=== PATIENT | female | born 1945 | race Caucasian/White ===

== ENCOUNTER → 2018-05-29 18:23 | Outpatient (REF) | payer MEDICARE, OTHER, SELFPAY | LOC: LBN 18:23 | PROVIDERS: PCP Family Medicine; Visit Provider Family Medicine | DX: N39.0 Urinary tract infection, site not specified (principal); R31.9 Hematuria, unspecified | CPT/HCPCS: 87077; 87086; 87186 ==

== ENCOUNTER 2019-03-01 19:27 | Outpatient (REF) | payer MEDICARE, OTHER, SELFPAY ==
[2019-03-01 19:57] LABS: Bilirubin Negative (Negative); Blood Small (Negative); Clarity Sl Cloudy; Glucose Negative (Negative); Ketones Negative (Negative); Leukocyte Esterase Moderate (Negative); Nitrite Negative (Negative); Urobilinogen 0.2 EU/dL (Up TO 0.2)
[2019-03-01 20:19] LABS: Bacteria Moderate HPF (Negative); C & S Indicated? C&S Done As Ordered; Casts Negative LPF (Negative); Crystals Negative HPF (Negative); Epithelial Cells Negative HPF (Negative); Mucus Negative (Negative); RBC Negative (0-2); WBC >50 HPF (0-5)
== END 2019-03-01 19:47 ==
LOC: LBN 19:27
PROVIDERS: PCP Family Medicine; Visit Provider Family Medicine
DX: R30.0 Dysuria (principal)
CPT/HCPCS: 87077; 81003; 81015; 87086; 87186

== ENCOUNTER 2020-09-07 21:15 | Outpatient (REF) | payer MEDICARE, OTHER, SELFPAY | END 2020-09-07 21:35 | LOC: NCHCN 21:15 | PROVIDERS: PCP Family Medicine; Visit Provider Family Medicine | DX: N39.0 Urinary tract infection, site not specified (principal) | CPT/HCPCS: 87086 ==

== ENCOUNTER 2020-10-13 02:08 | Outpatient (CLI) | payer MEDICARE, OTHER, SELFPAY ==
[2020-10-13 12:41] LABS: HGB 13.4 g/dL (11.2-15.7); MCH 28.7 pg (27.0-33.0); MCHC 32.7 % (32.0-36.0); MCV 87.8 fL (80-95); MPV 10.3 fL (8.0-11.0); Platelet Count 260 10^3/uL (130-400); RBC 4.67 10^6/uL (3.93-5.22); RDW 12.8 % (11.7-14.6); RDW-SD 41.4 fL; WBC 4.86 10^3/uL (4.4-10.8)
[2020-10-13 12:53] LABS: ALT 26 U/L (14-59); AST 14 U/L (15-37); Alkaline Phosphatase 58 U/L (46-116); Anion Gap 9.3 mmol/L (3-11); BUN 18 mg/dL (7-18); Bilirubin, Total 0.4 mg/dL (0.2-1.0); CO2 28.7 mmol/L (21.0-32.0); CREATININE 0.92 mg/dL (0.55-1.02); Calcium 9.1 mg/dL (8.5-10.1); Calculated LDL 197 mg/dL (<100); Chloride 104 mmol/L (98-107); Cholesterol 293 mg/dL (<200); Estimated GFR 59.35 (mL/min/1.73m2); Glucose 79 mg/dL (74-106); HDL Cholesterol 77 mg/dL (40-60); Potassium 4.8 mmol/L (3.5-5.1); Sodium 142 mmol/L (136-145); Total Protein 6.9 g/dL (6.4-8.2); Triglyceride 99 mg/dL (<150)
== END 2020-10-13 02:28 ==
PROVIDERS: PCP Family Medicine; Visit Provider Family Medicine
DX: E78.5 Hyperlipidemia, unspecified (principal)
CPT/HCPCS: 36415; 80053; 80061; 85027

== ENCOUNTER 2021-11-05 01:16 | Outpatient (CLI) | payer MEDICARE, OTHER, SELFPAY ==
[2021-11-05 11:41] LABS: Source Nasal/Nares
[2021-11-05 14:08] LABS: COVID-19 PCR Negative (Negative)
== END 2021-11-05 01:17 | disposition home or self-care (01) ==
LOC: LBO 01:17
PROVIDERS: PCP Family Medicine; Visit Provider Ophthalmology
DX: Z20.822 Contact with and (suspected) exposure to COVID-19 (principal); Z01.818 Encounter for other preprocedural examination
CPT/HCPCS: 87635

== ENCOUNTER 2021-11-08 08:04 | Day surgery (SDC) | payer MEDICARE, OTHER, SELFPAY ==
[2021-11-08 08:31] VITALS: BP 125/64; PULSE 84; RESP 16; TEMP 36.3; O2SAT 100
[2021-11-08] MEDS: Tropicam./Phenyleph. (1/2.5%) 5 ML BTL OD ×3 (08:39→08:49)
--- NOTE | 2021-11-08 09:35 | W.ANESPRE ---
General Info Date of Service Date Performed: 11/08/21 Height: 5 ft 2 in Weight: 53.3 kg Body Mass Index (BMI): 21.4 Surgical Procedure: Operation Date: 11/08/21 09:55 Proposed Procedures Side Surgeon p Cataract Extraction with IOL Implant Right Ozzie Freedman MD Meds Allergies and Home Medications Allergies Allergy/AdvReac Type Severity Reaction Status Date / Time chocolate with almonds AdvReac Unknown Other (See Uncoded 11/08/21 08:29 Comment) Home Medication Medication Instructions Recorded glucosamine mena 2KCl-chondroit 2 tab PO DAILY 01/08/13 multivitamin [One Daily] 2 ea PO DAILY 08/02/16 magnesium amino acid chelate 50 mg PO DAILY 08/16/17 Current Visit Medications: Current Medications Generic Name Dose Route Start Last Admin Trade Name Freq PRN Reason Stop Dose Admin Acetaminophen 1,000 mg 11/08/21 06:00 Acetaminophen 500 Mg Tab PO Q4H PRN PRN Miscellaneous Medication 0 ml 11/08/21 06:00 Prednisolone 1%, Moxifloxacin 0.5%, Nepafenac 0.1% 5ml Btl OD DIRECTED [facility] Miscellaneous Medication 0 ml 11/08/21 06:00 11/08/21 08:49 Tropicam./Phenyleph. 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 Surgical History Surgical History Appendectomy (~2010) Cholecystectomy (~2010) Colonoscopy - IV Sedation (10/24/16) Tobacco Smoking/Tobacco Use Status: Never Passive smoking exposure: Yes Second hand exposure: Yes Alcohol Alcohol Intake: current Alcohol intake frequency: 0-2 drinks per day Alcohol type: wine Substance Use Substance use: Never Substance use type: does not use Vital Signs and Lab Results Vital Signs Most Recent Vital Signs in EMR: Most Recent Vital Signs Temp Pulse Resp BP Pulse Ox 36.3 C L 84 16 125/64 100 11/08/21 08:31 11/08/21 08:31 11/08/21 08:31 11/08/21 08:31 11/08/21 08:31 Lab Results Blood Type / Crossmatch: No Data to Display Complete Blood Count: No Data to Display Complete Metabolic Panel: No Data to Display Liver Function Panel: No Data to Display Coagulation Panel: No Data to Display Cardiac Panel: No Data to Display Arterial Blood Gas: No Data to Display Venous Blood Gas: No Data to Display Pancreas Panel: No Data to Display Thyroid Panel: No Data to Display Infectious Disease: Coronavirus (COVID-19)(PCR) Negative (Negative) 11/05/21 08:38 11/05/21 Coronavirus 2019 Source Nasal/Nares 11/05/21 08:38 11/05/21 Blood Cultures: No Data to Display Toxicology Panel: No Data to Display Anesthesia Assessment and Plan Anesthesia History Personal History: No History of Anesthesia Complications Family History: No Family History of Anesthesia Complications Exercise Tolerance Exercise Tolerance: Metabolic Equivalents>4 Pertinent Negatives Pertinent Negatives: No Symptoms of GERD, No Major Cardiovascular Symptoms or Complaints, No Major Pulmonary Symptoms or Complaints and No History of CVA/TIA Cardiac & Pulmonary Exam Cardiac Exam: Normal S1/S2 Heart Sounds Pulmonary Exam: Clear Bilateral Breath Sounds Implantable Cardiac Device Does patient have a Pacemaker or an ICD?: No Airway Exam Known Difficult Airway: No Mallampati Class: 1 Mouth Opening: Normal (> 3cm) Thyromental Distance: Greater than 3 cm Neck Range of Motion: Full ROM Neck Circumference: Normal Teeth Condition: Normal Dentition ASA Classification ASA Score: ASA 2 Emergency Case?: No NPO Status NPO Status: NPO Clears >2 hours, Solids >8 hours Anesthesia Plan Resuscitation Status: Full Code Anesthesia Technique: MAC Anesthesia Airway Planned: Natural Airway Monitors Used: Standard Monitors
[2021-11-08 09:36] VITALS: BMI 21.4
[2021-11-08] MEDS: Lidocaine 2% Jelly 6 ML SYR (09:46)
[2021-11-08] MEDS: Tetracaine 0.5% 4 ML BTL OD (09:46)
[2021-11-08] MEDS: Balanced Salt Soln.-PLUS 500 ML BAG (09:54)
[2021-11-08] MEDS: Duovisc Viscoelastic System EACH 1 EACH (09:55)
[2021-11-08] MEDS: Povidone-Iodine Ophth 30 ML BTL (09:57)
--- NOTE | 2021-11-08 10:11 | W.ANESPOSTOP ---
Postoperative Evaluation Date, Time and Location Date Performed: 11/08/21 Time Performed: 10:11 Patient Location: Day Surgery Unit Vital Signs Most Recent Imported Vital Signs: Most Recent Vital Signs Temp Pulse Resp BP Pulse Ox 36.3 C L 84 16 125/64 100 11/08/21 08:31 11/08/21 08:31 11/08/21 08:31 11/08/21 08:31 11/08/21 08:31 Most Recent Manually Entered Vital Signs: Adult Blood Pressure: 122/61 Heart Rate: 73 Respirations: 12 Oxygen Saturation (%): 99 Temperature (C): 36.3 C Pain Score (0-10 Scale): 0 Pain Score Most Recent Pain Score: Most Recent Pain Score Pain Level 0 11/08/21 08:31 Assessment Mental Status: Awake (Alert & Oriented to Patient Baseline) Airway and Respiratory Function: Patent airway with normal (patient baseline) respiratory exam Cardiovascular Function: Hemodynamically Stable Hydration Status: Adequately Hydrated Nausea & Vomiting: No Nausea or Vomiting Pain: Pt. Denies Any Pain Peripheral Nerve Block: Patient did not receive a nerve block
[2021-11-08 10:12] VITALS: BP 122/61; PULSE 73; RESP 12; TEMPC 36.3; O2SAT 99
--- NOTE | 2021-11-08 10:12 | W.PM.DSUDISC ---
Discharge Plan Disposition Patient Disposition: HOME Condition: Good Discharge Details Attending Provider: Ozzie Freedman Primary Care Provider: Christina Pettit Home Meds and New Rx's Prescriptions: No Action glucosamine mena 2KCl-chondroit 1 EACH tablet 2 tab PO DAILY RF: 0 multivitamin [One Daily] 1 EACH tablet 2 ea PO DAILY RF: 0 magnesium amino acid chelate 100 MG tablet 50 mg PO DAILY RF: 0 Discharge Instructions Stand Alone Forms: Post-op Topical Cataract, Brad Hassan ([facility]) Discharge Orders Discharge Orders: Discharge Order (Routine); Ordered 11/08/21 Ordered By: Ozzie Freedman DS: Diagnosis Discharge Diagnosis (1) Cortical cataract of right eye: Status: Resolved (2) Nuclear sclerotic cataract of right eye: Status: Resolved
--- NOTE | 2021-11-08 10:13 | W.PM.OP ---
Date of service: 11/08/21 Time of Service: 10:13 Operative Note Operative Note DATE OF PROCEDURE: 11/08/21 PRE-OP DIAGNOSIS: Nuclear/cortical cataract, right eye POST-OP DIAGNOSIS: same PROCEDURE: Cataract extraction using phacoemulsification with intraocular lens implant, right eye SURGEON: Ozzie Freedman ANESTHESIA TYPE: Local By Surgeon and MAC Refer to Anesthesia Record ESTIMATED BLOOD LOSS: 0 PATHOLOGY: none sent COMPLICATIONS: None Patient was transported to: same day Patient's condition: stable Implants: José Clareon [id number] Indications: Progressive decreased vision due to cataract, right eye Procedure Description: CATARACT SURGERY OPERATIVE REPORT PREOPERATIVE DIAGNOSIS: Nuclear/cortical cataract, right eye POSTOPERATIVE DIAGNOSIS: Same OPERATION: Cataract extraction using phacoemulsification with posterior chamber intraocular lens implant, right eye. IOL: IOL Automobile Mechanic Assistant/Model: José Clareon [id number] IOL Power: + 22.0 diopters IOL Serial Number: [id number] Optic Diameter: 6.0mm Haptic/Overall Diameter: 13.0mm PHACO INFO: José Santeen Productsurion Vision System with OZil and Active Fluidics Cumulative Dispersed Energy (CDE): 10.71 seconds SURGEON: Ozzie Freedman MD, ADOLPH ANESTHESIA: Monitored Anesthesia Care (MAC), with local sub-tenon's anesthetic infiltration COMPLICATIONS: None SPECIMENS: None INDICATIONS FOR PROCEDURE: The patient is a 76-year-old lady with history of diminished visual acuity in her right eye secondary to the development of nuclear and cortical cataract. The option of cataract surgery was offered to the patient and she felt she was symptomatic enough that she wished to proceed. PROCEDURE: The correct surgical eye was identified and marked as the right eye and the pupil was dilated in the preoperative area using mydriatics and cycloplegics. The dilated pupil size was 6.0 mm. She elected to proceed without oral sedation. The patient was brought to the operating room where cardiopulmonary monitoring was instituted and surgical time-out was performed, confirming the correct operative eye and IOL power. Topical anesthesia was administered and ophthalmic povidone-iodine 5% was instilled into the conjunctival fornices. Lidocaine gel was applied to the cornea and the esteban-ocular area was prepped with Betadine 10% solution and draped in the usual sterile fashion for intraocular surgery, including an aperture drape. A Tegaderm transparent film dressing was cut in half and used to cover the lashes and lid margins. Care was taken to sequester the lashes and lid margins under the Tegaderm dressing. A lid speculum was placed between the lids of the operative eye and the Viola-Gerry operating microscope was maneuvered into position. Macho scissors were then used to make a conjunctival buttonhole approximately 6mm posterior to the limbus in the inferonasal quadrant. Blunt dissection was carried out to expose bare sclera, and a blunt-tipped sub-tenon?s anesthesia cannula was introduced and passed posteriorly along the globe where non-preserved plain lidocaine was injected into posterior sub-Tenon?s space. A sideport knife was used to make a paracentesis port inferiortemporally. Intraocular phenylephrine/lidocaine was injected into the anterior chamber. The anterior chamber was then filled with viscoelastic. A 2.4mm keratome knife was used to create a half-thickness groove at the limbus and then to construct a three-plane near-clear corneal tunnel extending 2.0mm into clear cornea in the superiortemporal position. . A flap was raised on the anterior capsule and capsulorhexis forceps were used to complete a continuous curvilinear capsulorhexis of 5.0 mm. Balanced salt solution was then used to perform cortical cleaving hydrodissection and nuclear hydrodelineation until the lens could be freely rotated within the capsular bag. The lens nucleus was then disassembled and removed within the capsular bag and iris plane using phacoemulsification. Residual cortical material was removed using the I/A handpiece. The posterior capsule was carefully polished to remove as much residual lens epithelial cells as safely possible. The capsular bag was then inflated and the anterior chamber deepened with viscoelastic. The lens implant described above was inserted into the capsular bag using the José Autonome Injector. A Kuglen hook was used to dial the IOL into position. Residual viscoelastic was then removed first from posterior to the IOL, then from the anterior chamber using the I/A handpiece. The lens implant was noted to center nicely within the capsular bag. The incisions were stromally hydrated, and the anterior chamber was reformed using BSS. Then 0.5cc of moxifloxacin 1.0mg/ml were injected into the capsular bag and anterior chamber. The incisions were checked with a Weck spear and found to be secure. Several drops of ophthalmic povidone-iodine 5% were then applied to the eye followed by two drops of Imprimis combination prednisolone/moxifloxacin/nepafenac solution. The drapes were removed and a clear plastic protective eye shield was placed over the eye. The patient was then returned to Same Day Surgery in stable condition.
[2021-11-08 10:16] VITALS: BP 122/61; PULSE 73; RESP 16; TEMP 36.1; O2SAT 99
== END 2021-11-08 10:33 | disposition home or self-care (01) ==
PROVIDERS: PCP Family Medicine; Visit Provider Ophthalmology
PROC: (CPT 66984; principal; 2021-11-08 09:45)
DX: H25.11 Age-related nuclear cataract, right eye (principal)
CPT/HCPCS: 66984; V2632

== ENCOUNTER 2021-11-19 01:03 | Outpatient (CLI) | payer MEDICARE, OTHER, SELFPAY ==
[2021-11-19 15:55] LABS: Source Nasal/Nares
[2021-11-19 21:03] LABS: COVID-19 PCR Negative (Negative)
== END 2021-11-19 01:04 | disposition home or self-care (01) ==
LOC: LBO 01:03
PROVIDERS: PCP Family Medicine; Visit Provider Ophthalmology
DX: Z20.822 Contact with and (suspected) exposure to COVID-19 (principal)
CPT/HCPCS: 87635; U0003; U0005

== ENCOUNTER 2021-11-22 08:55 | Day surgery (SDC) | payer MEDICARE, OTHER, SELFPAY ==
[2021-11-22] MEDS: Tropicam./Phenyleph. (1/2.5%) 5 ML BTL OS ×3 (09:23→09:35)
[2021-11-22 09:25] VITALS: BP 116/61; PULSE 76; RESP 16; TEMP 36.1; O2SAT 100
--- NOTE | 2021-11-22 09:57 | W.ANESPRE ---
General Info Date of Service Date Performed: 11/22/21 Height: 5 ft 2 in Weight: 50.6 kg Body Mass Index (BMI): 20.4 Surgical Procedure: Operation Date: 11/22/21 11:40 Proposed Procedure Side Surgeon p Cataract Extraction with IOL Implant Left Ozzie Freedman MD Meds Allergies and Home Medications Allergies Allergy/AdvReac Type Severity Reaction Status Date / Time chocolate with almonds AdvReac Unknown Other (See Uncoded 11/22/21 09:20 Comment) Home Medication Medication Instructions Recorded glucosamine sulf dipotassium Cl 2 tab PO DAILY 01/08/13 500 mg-chondroitin sulf 400 mg tablet multivitamin (One Daily) 2 ea PO DAILY 08/02/16 magnesium amino acid chelate 100 50 mg PO DAILY 08/16/17 mg tablet Current Visit Medications: Current Medications Generic Name Dose Route Start Last Admin Trade Name Freq PRN Reason Stop Dose Admin Acetaminophen 1,000 mg 11/22/21 06:00 Acetaminophen 500 Mg Tab PO Q4H PRN PRN Miscellaneous Medication 0 ml 11/22/21 06:00 Prednisolone 1%, Moxifloxacin 0.5%, Nepafenac 0.1% 5ml Btl OS DIRECTED DORINA Miscellaneous Medication 0 ml 11/22/21 06:00 11/22/21 09:35 Tropicam./Phenyleph. (1/2.5%) 5 Ml Btl OS 1 drp DIRECTED DORINA Administration Tetracaine HCl 0 ml 11/22/21 06:00 Tetracaine 0.5% 4 Ml Btl OS DIRECTED DORINA PFSH Active Problems Active Problems: Problem Status Onset Code Hyperlipidemia E78.5 Hearing impairment H91.90 Nuclear sclerotic cataract of right eye H25.11 Medical History Medical History Colon polyp Diverticulosis large intestine w/o perforation or abscess w/bleeding Uterine prolapse tried a pessary, caused UTI's, stopped using. Surgical History Surgical History (Updated 11/22/21 @ 09:20 by Justine Vargas) Appendectomy (~2010) Cholecystectomy (~2010) Colonoscopy - IV Sedation (10/24/16) Cortical cataract of right eye Hx of cataract surgery Tobacco Smoking/Tobacco Use Status: Never Passive smoking exposure: Yes Second hand exposure: Yes Alcohol Alcohol Intake: current Alcohol intake frequency: 0-2 drinks per day Alcohol type: wine Substance Use Substance use: Never Substance use type: does not use Vital Signs and Lab Results Vital Signs Most Recent Vital Signs in EMR: Most Recent Vital Signs Temp Pulse Resp BP Pulse Ox 36.1 C L 76 16 116/61 100 11/22/21 09:25 11/22/21 09:25 11/22/21 09:25 11/22/21 09:25 11/22/21 09:25 Lab Results Blood Type / Crossmatch: No Data to Display Complete Blood Count: No Data to Display Complete Metabolic Panel: No Data to Display Liver Function Panel: No Data to Display Coagulation Panel: No Data to Display Cardiac Panel: No Data to Display Arterial Blood Gas: No Data to Display Venous Blood Gas: No Data to Display Pancreas Panel: No Data to Display Thyroid Panel: No Data to Display Infectious Disease: Coronavirus (COVID-19)(PCR) Negative (Negative) 11/19/21 08:30 11/19/21 Coronavirus 2019 Source Nasal/Nares 11/19/21 08:30 11/19/21 Blood Cultures: No Data to Display Toxicology Panel: No Data to Display Anesthesia Assessment and Plan Anesthesia History Personal History: No History of Anesthesia Complications Family History: No Family History of Anesthesia Complications Exercise Tolerance Exercise Tolerance: Metabolic Equivalents>4 Pertinent Negatives Pertinent Negatives: No Symptoms of GERD Cardiac & Pulmonary Exam Cardiac Exam: Normal S1/S2 Heart Sounds Pulmonary Exam: Clear Bilateral Breath Sounds Implantable Cardiac Device Does patient have a Pacemaker or an ICD?: No Airway Exam Known Difficult Airway: No Mallampati Class: 1 Mouth Opening: Normal (> 3cm) Thyromental Distance: Greater than 3 cm Neck Range of Motion: Full ROM Neck Circumference: Normal Teeth Condition: Normal Dentition ASA Classification ASA Score: ASA 2 Emergency Case?: No NPO Status NPO Status: NPO Clears >2 hours, Solids >8 hours Anesthesia Plan Resuscitation Status: Full Code Anesthesia Technique: MAC Anesthesia Airway Planned: Natural Airway Monitors Used: Standard Monitors
[2021-11-22 10:20] VITALS: BMI 20.4
[2021-11-22] MEDS: Tetracaine 0.5% 4 ML BTL OS (10:32)
[2021-11-22] MEDS: Lidocaine 2% Jelly 6 ML SYR (10:35)
[2021-11-22] MEDS: Balanced Salt Soln.-PLUS 500 ML BAG (10:40)
[2021-11-22] MEDS: Duovisc Viscoelastic System EACH 1 EACH (10:43)
[2021-11-22] MEDS: Povidone-Iodine Ophth 30 ML BTL (10:44)
--- NOTE | 2021-11-22 10:59 | W.PM.DSUDISC ---
Discharge Plan Disposition Patient Disposition: HOME Condition: Good Discharge Details Attending Provider: Ozzie Freedman Primary Care Provider: Christina Pettit Home Meds and New Rx's Prescriptions: No Action glucosamine mena 2KCl-chondroit 1 EACH tablet 2 tab PO DAILY 0RF multivitamin [One Daily] 1 EACH tablet 2 ea PO DAILY 0RF Label Comments: 08/02/16: Vitality MVI and Mineral, 2 tabs PO daily. -BR magnesium amino acid chelate 100 MG tablet 50 mg PO DAILY 0RF Discharge Instructions Stand Alone Forms: Post-op Topical Cataract, Brad Hassan ([facility]) Discharge Orders Discharge Orders: Discharge Order (Routine); Ordered 11/22/21 Ordered By: Ozzie Freedman DS: Diagnosis Discharge Diagnosis (1) Nuclear sclerotic cataract of left eye: Status: Resolved
[2021-11-22 11:00] VITALS: BP 146/92; PULSE 71; RESP 16; TEMP 36.6; O2SAT 99
--- NOTE | 2021-11-22 11:01 | W.PM.OP ---
Date of service: 11/22/21 Time of Service: 11:01 Operative Note Operative Note DATE OF PROCEDURE: 11/22/21 PRE-OP DIAGNOSIS: Nuclear cataract, left eye POST-OP DIAGNOSIS: same PROCEDURE: Cataract extraction using phacoemulsification with intraocular lens implant, left eye SURGEON: Ozzie Freedman ANESTHESIA TYPE: Local By Surgeon and MAC Refer to Anesthesia Record PATHOLOGY: none sent COMPLICATIONS: None Patient was transported to: same day Patient's condition: stable Implants: José Clareon [id number] Indications: Progressive decreased vision due to cataract, left eye Procedure Description: CATARACT SURGERY OPERATIVE REPORT PREOPERATIVE DIAGNOSIS: Nuclear cataract, left eye POSTOPERATIVE DIAGNOSIS: Same OPERATION: Cataract extraction using phacoemulsification with posterior chamber intraocular lens implant, left eye. IOL: IOL Electrical Contacts Adjuster/Model: José Clareon [id number] IOL Power: + 21.5 diopters IOL Serial Number: [id number] Optic Diameter: 6.0mm Haptic/Overall Diameter: 13.0mm PHACO INFO: José LetMeHearYaurion Vision System with OZil and Active Fluidics Cumulative Dispersed Energy (CDE): 5.16 seconds SURGEON: Ozzie Freedman MD, ADOLPH ANESTHESIA: Monitored Anesthesia Care (MAC), with local sub-tenon's anesthetic infiltration COMPLICATIONS: None SPECIMENS: None INDICATIONS FOR PROCEDURE: The patient is a 76-year-old lady with history of diminished visual acuity in both eyes secondary to the development of bilateral nuclear cataract. The option of cataract surgery was offered to the patient and she wished to proceed. She has already undergone cataract surgery in the right eye and is doing well postoperatively. She now presents for cataract surgery in the left eye. PROCEDURE: The correct surgical eye was identified and marked as the left eye and the pupil was dilated in the preoperative area using mydriatics and cycloplegics. The dilated pupil size was 7.0 mm. She elected to proceed without oral sedation. The patient was brought to the operating room where cardiopulmonary monitoring was instituted and surgical time-out was performed, confirming the correct operative eye and IOL power. Topical anesthesia was administered and ophthalmic povidone-iodine 5% was instilled into the conjunctival fornices. Lidocaine gel was applied to the cornea and the esteban-ocular area was prepped with Betadine 10% solution and draped in the usual sterile fashion for intraocular surgery, including an aperture drape. A Tegaderm transparent film dressing was cut in half and used to cover the lashes and lid margins. Care was taken to sequester the lashes and lid margins under the Tegaderm dressing. A lid speculum was placed between the lids of the operative eye and thet operating microscope was maneuvered into position. Macho scissors were then used to make a conjunctival buttonhole approximately 6mm posterior to the limbus in the inferonasal quadrant. Blunt dissection was carried out to expose bare sclera, and a blunt-tipped sub-tenon?s anesthesia cannula was introduced and passed posteriorly along the globe where non-preserved plain lidocaine was injected into posterior sub-Tenon?s space. A sideport knife was used to make a paracentesis port superior/superiortemporally. Intraocular phenylephrine/lidocaine was injected into the anterior chamber. The anterior chamber was then filled with viscoelastic. A 2.4mm keratome knife was used to create a half-thickness groove at the limbus and then to construct a three-plane near-clear corneal tunnel extending 2.0mm into clear cornea in the temporal position. . A flap was raised on the anterior capsule and capsulorhexis forceps were used to complete a continuous curvilinear capsulorhexis of 5.0 mm. Balanced salt solution was then used to perform cortical cleaving hydrodissection and nuclear hydrodelineation until the lens could be freely rotated within the capsular bag. The lens nucleus was then disassembled and removed within the capsular bag and iris plane using phacoemulsification. Residual cortical material was removed using the 45-degree angled silicone I/A tip with 0.3mm port. The posterior capsule was carefully polished to remove as much residual lens epithelial cells as safely possible. The capsular bag was then inflated and the anterior chamber deepened with viscoelastic. The lens implant described above was inserted into the capsular bag using the José Autonome Injector. A Kuglen hook was used to dial the IOL into position. Residual viscoelastic was then removed first from posterior to the IOL, then from the anterior chamber using the I/A handpiece. The lens implant was noted to center nicely within the capsular bag. The incisions were stromally hydrated, and the anterior chamber was reformed using BSS. Then 0.5cc of moxifloxacin 1.0mg/ml were injected into the capsular bag and anterior chamber. The incisions were checked with a Weck spear and found to be secure. Several drops of ophthalmic povidone-iodine 5% were then applied to the eye followed by two drops of Imprimis combination prednisolone/moxifloxacin/nepafenac solution. The drapes were removed and a clear plastic protective eye shield was placed over the eye. The patient was then returned to Same Day Surgery in stable condition.
--- NOTE | 2021-11-22 11:09 | W.ANESPOSTOP ---
Postoperative Evaluation Date, Time and Location Date Performed: 11/22/21 Time Performed: 11:09 Patient Location: Day Surgery Unit Vital Signs Most Recent Imported Vital Signs: Most Recent Vital Signs Temp Pulse Resp BP Pulse Ox 36.6 C 71 16 146/92 H 99 11/22/21 11:00 11/22/21 11:00 11/22/21 11:00 11/22/21 11:00 11/22/21 11:00 Pain Score Most Recent Pain Score: Most Recent Pain Score Pain Level 0 11/22/21 11:00 Assessment Mental Status: Awake (Alert & Oriented to Patient Baseline) Airway and Respiratory Function: Patent airway with normal (patient baseline) respiratory exam Cardiovascular Function: Hemodynamically Stable Hydration Status: Adequately Hydrated Nausea & Vomiting: No Nausea or Vomiting Pain: Pt. Denies Any Pain Peripheral Nerve Block: Patient did not receive a nerve block
== END 2021-11-22 11:17 | disposition home or self-care (01) ==
PROVIDERS: PCP Family Medicine; Visit Provider Ophthalmology
PROC: (CPT 66984; principal; 2021-11-22 11:30)
DX: H25.12 Age-related nuclear cataract, left eye (principal); E78.5 Hyperlipidemia, unspecified; K57.30 Diverticulosis of large intestine without perforation or abscess without bleeding
CPT/HCPCS: 66984; V2632

== ENCOUNTER 2022-10-06 02:28 | Outpatient (CLI) | payer MEDICARE, OTHER, SELFPAY ==
[2022-10-06 12:30] LABS: Calculated LDL 192 mg/dL (<100); Cholesterol 290 mg/dL (<200); HDL Cholesterol 83 mg/dL (40-60); Triglyceride 77 mg/dL (<150)
[2022-10-06 22:10] LABS: CRP, High Sensitivity 0.78 mg/L (See Note)
[2022-10-07 14:46] LABS: Apolipoprotein B, S 143 mg/dL
== END 2022-10-06 02:29 | disposition home or self-care (01) ==
LOC: LOS 02:28
PROVIDERS: PCP Family Medicine; Visit Provider Family Medicine
DX: E78.00 Pure hypercholesterolemia, unspecified (principal); Z13.6 Encounter for screening for cardiovascular disorders
CPT/HCPCS: 36415; 80061; 82172; 86141

== ENCOUNTER 2024-10-31 03:01 | Outpatient (CLI) | payer MEDICARE, OTHER, SELFPAY ==
--- NOTE | 2024-10-31 07:30 | DI.DEXA_ITS ---
Exam(s) XR DEXA BONE DENSITY W/WO AMANDA EXAM: XR DEXA BONE DENSITY W/WO AMANDA CLINICAL HISTORY: Screening,menopausal disorder, n95.9 TECHNIQUE: COMPARISON: No exams were available for comparison FINDINGS: Lateral Spine Image: Unremarkable. No compression deformities identified. Left hip: Total T-Score: -0.6 Total Z-Score: 1.5 T- and Z-scores: Within normal limits. Lumbar Spine: Total T-Score: 1.5 Total Z-Score: 4.2 T- and Z-scores: Within normal limits. IMPRESSION: No evidence of osteoporosis.
== END 2024-10-31 03:21 ==
LOC: DI 03:02
PROVIDERS: PCP Family Medicine; Visit Provider Family Medicine
DX: N95.9 Unspecified menopausal and perimenopausal disorder (principal); Z13.820 Encounter for screening for osteoporosis
CPT/HCPCS: 77080